=== PATIENT | male | born 1995 | race Caucasian/White ===

== ENCOUNTER 2018-03-30 23:33 | Emergency (ER) | payer BC ==
[2018-03-30] MEDS ORDERED: RANITIDINE 50 MG/2 ML VIAL IVP ONE (23:48)
[2018-03-30] MEDS ORDERED: methylPREDNISolone SOD SUCC 125 MG/2 ML VIAL IVP ONE (23:48)
[2018-03-30] MEDS ORDERED: EPINEPHrine 1 MG/ML INJ IM ONE (23:48)
[2018-03-31] MEDS ORDERED: ONDANSETRON 4 MG/2 ML VIAL ONE (00:04)
[2018-03-31] MEDS ORDERED: ONDANSETRON 4 MG/2 ML VIAL IVP ONE (00:06)
--- NOTE | 2018-03-31 00:06 | EDPHY ---
H & P Stated Complaint: HAD SOME NUTS 1 HR AGO NOW RASH RUNNYNOSE AND SNEEZING Time Seen by Provider: 03/30/18 23:41 HPI/ROS: HPI The patient presents with concern for allergic reaction. Over the last 1 hr he has had progressive body itching and rash in his torso and arms associated with some difficulty swallowing, eyelid edema bilaterally, clear rhinorrhea and nausea. 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 He has no prior history of any allergies whatsoever. He does not feel short of breath or have any wheezing. REVIEW OF SYSTEMS 10 systems were reviewed and negative with the exception of the elements mentioned in the history of present illness. PMHx: Healthy Soc Hx: FHx: PHYSICAL General Appearance: Alert, no distress Eyes: Pupils equal and round no pallor or injection ENT, Mouth: Mucous membranes moist, posterior pharynx is injected and slightly edematous, uvula is not enlarged and is at midline Respiratory: There are no retractions, lungs are clear to auscultation, no wheezing Cardiovascular: Tachycardic rate and regular rhythm Gastrointestinal: Abdomen is soft and non-tender, no masses, bowel sounds normal Neurological: A&O, moves all extremities Skin: Warm and dry, diffuse erythema to his chest wall, back, upper extremities Musculoskeletal: Neck is supple non tender Extremities: symmetrical, full range of motion Psychiatric: Patient is oriented X 3, there is no agitation Source: Patient Exam Limitations: No limitations - Personal History Current Tetanus/Diphtheria Vaccine: Yes Current Tetanus Diphtheria and Acellular Pertussis (TDAP): Yes - Medical/Surgical History Hx Asthma: No Hx Chronic Respiratory Disease: No Hx Diabetes: No Hx Cardiac Disease: No Hx Renal Disease: No Hx Cirrhosis: No Hx Alcoholism: No Hx HIV/AIDS: No Hx Splenectomy or Spleen Trauma: No Other PMH: DENIES - Social History Smoking Status: Never smoked Constitutional: Initial Vital Signs Temperature (C) 37.0 C 03/30/18 23:35 Heart Rate 107 H 03/30/18 23:35 Respiratory Rate 20 03/30/18 23:35 Blood Pressure 149/85 H 03/30/18 23:35 O2 Sat (%) 92 03/30/18 23:35 O2 Delivery Mode Room Air Allergies/Adverse Reactions: No Known Allergies Allergy (Unverified 03/30/18 23:38) Home Medications: Medication Instructions Recorded EPINEPHrine [Epipen 0.3 MG] 0.3 mg IM ONCE #2 syr 03/31/18 Medical Decision Making Differential Diagnosis: This is a 22-year-old male with 1 hr of rash which is pruritic, rhinorrhea, eyelid edema, sore throat, concerning for anaphylaxis. I evaluated the patient upon arrival in the emergency department. I have ordered epinephrine, Benadryl, Pepcid, Solu-Medrol. The patient had an episode of vomiting before receiving epinephrine. He improved fairly rapidly after receiving the epinephrine. He was observed for 2 hr afterwards with no ongoing signs of allergic reaction. He did eat a combination of [place] nuts, Patricia nuts, walnuts, almonds prior to this episode. He says he has eaten all of these nuts before and never had an allergic reaction however. I have advised him to avoid eating any nuts until he is further evaluated and have given him information for primary care. I will prescribe him an EpiPen as well and have instructed him on when to use this. He will be discharged home with a friend. Critical Care Time: CRITICAL CARE Critical care time spent by me, Dr. Coker, exclusively with this patient was 20 minutes, exclusive of PA time and exclusive of procedures. The organ system at risk was respiratory, cardiac and I gave epinephrine to prevent worsening of the patients condition. - Data Points Medications Given: Discontinued Medications Diphenhydramine HCl (Benadryl Injection) 50 mg IVP EDNOW ONE Stop: 03/30/18 23:49 Last Admin: 03/30/18 23:55 Dose: 50 mg Epinephrine HCl (Epinephrine) 0.3 mg IM EDNOW ONE Stop: 03/30/18 23:49 Last Admin: 03/31/18 00:07 Dose: 0.3 mg Methylprednisolone Sodium Succinate (Solu-Medrol) 125 mg IVP EDNOW ONE Stop: 03/30/18 23:49 Last Admin: 03/30/18 23:56 Dose: 125 mg Ondansetron HCl (Zofran) 4 mg IVP EDNOW ONE Stop: 03/31/18 00:07 Last Admin: 03/31/18 00:07 Dose: 4 mg Ranitidine HCl (Zantac) 50 mg IVP EDNOW ONE Stop: 03/30/18 23:49 Last Admin: 03/30/18 23:56 Dose: 50 mg Departure - Departure Disposition: Home, Routine, Self-Care Clinical Impression: Acute anaphylaxis Qualifiers: Encounter type: initial encounter Qualified Code(s): T78.2XXA - Anaphylactic shock, unspecified, initial encounter Condition: Good Instructions: Anaphylaxis (ED) Additional Instructions: I recommend you take Benadryl 25 mg every 6 hr until your feeling completely better. I would avoid eating any foods with knots in them into you can be further evaluated. I have given you the name of a primary care doctor for follow-up. Return to the ER if worse in any way. Referrals: Ananya Bo MD [Medical Doctor] - As per Instructions Prescriptions: EPINEPHrine [Epipen 0.3 MG] 0.3 mg IM ONCE #2 syr
[2018-03-31 02:16] VITALS: BP 122/61
== END 2018-03-31 02:17 | disposition home or self-care (01) ==
DX: T78.00XA Anaphylactic reaction due to unspecified food, initial encounter (principal); R21 Rash and other nonspecific skin eruption
CPT/HCPCS: 96374; J0171; J1200; J2405; J2780; J2930